=== PATIENT | male | born 1995 | race Caucasian/White ===

== ENCOUNTER 2020-08-01 23:32 | Inpatient (IN) | payer BC ==
[~2020-08-01] VITALS: Ht 185.4 cm; Wt 122.5 kg
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
[2020-08-02] MEDS ORDERED: VANCOMYCIN 1 GM in IV D5W 250 ML IV ONE
[2020-08-02] MEDS ORDERED: IV NS 0.9% 1,000 ML BAG IV ONE
[2020-08-02] MEDS ORDERED: PIPERACILLIN /TAZOBACTAM 3.375 G in IV D5W 50 ML IV ONE
[2020-08-02] MEDS ORDERED: PIPERACILLIN /TAZOBACTAM 3.375 G VIAL IV ONE (00:18)
[2020-08-02] MEDS ORDERED: VANCOMYCIN 1 GM VIAL ONE (00:18)
[2020-08-02 00:30] LABS: BASOPHILS # (AUTO) 0.1 /CMM (0.0-0.2); BASOPHILS % (AUTO) 0.6 % (0.0-2.0); HEMATOCRIT 36 % (39-51); HEMOGLOBIN 12.2 g/dL (13.5-17.5); LYMPHOCYTES # (AUTO) 2.2 /CMM (0.8-4.8); LYMPHOCYTES % (AUTO) 20.7 % (20.0-44.0); MEAN CORPUSCULAR HGB CONC 34 g/dl (31.0-36.0); MEAN CORPUSCULAR VOLUME 83 fL (80-96); MONOCYTES # (AUTO) 0.9 /CMM (0.1-1.30); MONOCYTES % (AUTO) 7.9 % (2.0-12.0); NEUTROPHILS # (AUTO) 7.7 /CMM (1.8-8.9); NEUTROPHILS % (AUTO) 70.8 % (43.0-81.0); PLATELET COUNT (AUTO) 334 /CMM (150-450); RED BLOOD CELL COUNT(AUTO) 4.39 MIL/uL (4.5-6.0); WHITE BLOOD COUNT (AUTO) 10.8 K/uL (4.3-11.0)
[2020-08-02 01:07] LABS: CALCIUM, SERUM 9.1 mg/dL (8.5-10.1); CARBON DIOXIDE 29 mmol/L (21-32); CHLORIDE 104 mmol/L (98-107); CREATININE 0.9 mg/dL (0.6-1.3); GLUCOSE 106 mg/dL (74-106); POTASSIUM 3.7 mmol/L (3.5-5.1); SODIUM SERUM 141 mmol/L (136-145); UREA NITROGEN, BLOOD 6 mg/dL (7-18)
[2020-08-02 01:19] LABS: ALANINE AMINOTRANSFERASE 51 U/L (12-78); ALBUMIN 2.9 g/dL (3.4-5.0); ALKALINE PHOSPHATASE 99 U/L (46-116); ASPARTATE AMINOTRANSFERASE 44 U/L (15-37); BILIRUBIN,DIRECT 0.1 mg/dL (0.0-0.2); BILIRUBIN,TOTAL 0.4 mg/dL (0.2-1.0); TOTAL PROTEIN, SERUM 7.6 g/dL (6.4-8.2)
[2020-08-02] MEDS ORDERED: HYDROCODONE/APAP 5/325MG TABLET ONE (01:35)
--- NOTE | 2020-08-02 01:50 | NUR ---
URINE COLLECTED, SENT TO LAB.
[2020-08-02] MEDS ORDERED: HYDROCODONE/APAP 5/325MG TABLET PO ONE (02:00)
--- NOTE | 2020-08-02 02:20 | NUR ---
CHANEL HWANG DNP PAGED PER ER ORDER.
[2020-08-02 02:31] LABS: BILIRUBIN,URINE NEGATIVE (NEGATIVE); COLOR,URINE YELLOW (YELLOW); LEUKOCYTE ESTERASE ,URINE NEGATIVE (NEGATIVE); NITRITE, URINE NEGATIVE (NEGATIVE); PROTEIN,URINE NEGATIVE (NEGATIVE); UGLUCOSE NEGATIVE (NEGATIVE)
--- NOTE | 2020-08-02 02:40 | NUR ---
ER TALKING TO CHANEL HWANG DNP REGARDING PT ADMISSION.
[2020-08-02 02:41] LABS: BACTERIA,URINE None seen /HPF (None Seen); RBC,URINE 0-2 /HPF (0-2); SQUAMOUS EPITHELIAL CELL,UR Few /HPF (None Seen); WBC,URINE 0-2 /HPF (0-3)
--- NOTE | 2020-08-02 02:41 | NUR ---
TELE [id number]
[2020-08-02 02:42] LABS: MUCUS,URINE Moderate /LPF (None Seen)
--- NOTE | 2020-08-02 02:48 | NUR ---
REPORT GIVEN TO BARRY GARRETT FOR ARY
--- NOTE | 2020-08-02 03:10 | NUR ---
PT TRANSFERED PER ACLS PROTOCOL
[2020-08-02 03:15] VITALS: BP 138/93
[2020-08-02] MEDS ORDERED: ACETAMINOPHEN 325 MG TABLET PO PRN (03:30)
[2020-08-02] MEDS ORDERED: ZOLPIDEM TARTRATE 5 MG TABLET PO PRN (03:30)
[2020-08-02] MEDS ORDERED: ONDANSETRON HCL/PF 4 MG/2 ML VIAL IVP PRN (03:30)
[2020-08-02] MEDS: IV NS 0.9% 1,000 ML IV PRN (03:39)
--- NOTE | 2020-08-02 03:45 | NUR ---
MS/RN ADMITTING NOTE RECEIVED REPORT FROM LESLIE GARRETT IN ER. PATIENT ARRIVED TO UNIT VIA GURNEY AND 2 STAFF MEMBERS. PATIENT IS ALERT AND ORIENTED X 4. ABLE TO MAKE NEEDS KNOWN. COMPLAINTS OF PAIN TO RLE 12/06 - WILL ADMINISTER PAIN MEDICATION. RESPIRATIONS EVEN AND UNLABORED. IV ACCESS TO RIGHT HAND INTACT AND PATENT. STARTED ON IV NS @ 75ML/HR. CONTINUES ON IV ABX. RLE WITH 3+ EDEMA, REDNESS, WARMTH. NO OTHER SKIN ISSUES NOTED ON ADMISSION. VS: BP 138/93 HR 104 RR 18 T 98.2 O2 SAT 96% RA. PATIENT ORIENTED TO ROOM, CALL LIGHT AND UNIT. CALL LIGHT WITHIN REACH. ASPIRATION, FALL AND SAFETY PRECAUTIONS MAINTAINED. WILL CONTINUE TO MONITOR.
[2020-08-02] MEDS: ENOXAPARIN SODIUM 40 MG/0.4 ML DISP.SYRIN SQ SCH ×2 (04:00→22:14)
[2020-08-02] MEDS: HYDROCODONE/APAP 10/325MG TABLET PO PRN ×2 (04:14→20:06)
[2020-08-02 04:34] VITALS: BP 138/93
[2020-08-02] MEDS ORDERED: CEFEPIME 2 GM in IV D5W 100 ML IV SCH (05:00)
[2020-08-02] MEDS ORDERED: CEFEPIME 1 GM VIAL ONE (05:13)
--- NOTE | 2020-08-02 06:25 | NUR ---
MS/RN CLOSING NOTE PATIENT CURRENTLY RESTING IN BED. AWAKE, ALERT AND ORIENTED X 4. ABLE TO MAKE NEEDS KNOWN. NO COMPLAINTS OF PAIN AT THIS TIME. IV ACCESS TO RIGHT HAND INTACT AND PATENT. CONTINUES ON IVF NS @ 75ML/HR. CONTINUES ON IV ABX. ALL NEEDS ATTENDED TO. CALL LIGHT WITHIN REACH. ASPIRATION, FALL AND SAFETY PRECAUTIONS MAINTAINED. WILL ENDORSE PLAN OF CARE TO ONCOMING SHIFT.
--- NOTE | 2020-08-02 07:45 | NUR ---
MS RN OPENING NOTES RECEIVED PATIENT AWAKE IN BED. ALERT AND ORIENTED X 4. ON ROOM AIR TOLERATING WELL. PATIENT COMPLAINED OF PAIN 10/10 ON R LOWER EXTREMITY. PATIENT STATED NORCO DID NOT WORK FOR PAIN. BREATHING IS EVEN AND UNLABORED. IV ACCESS RHAND#18 PATENT AND INTACT. BED MAINTAINED ON LOWEST POSITION AND LOCKED WITH SIDE RAILS UP X 2. CALL LIGHT AND BEDSIDE TABLE IS WITHIN REACH. WILL CONTINUE TO MONITOR THROUGHOUT SHIFT.
[2020-08-02] MEDS: PANTOPRAZOLE 40 MG TABLET.DR PO SCH (08:06)
[2020-08-02] MEDS: VANCOMYCIN 1.25 GM in IV D5W 250 ML IV SCH ×3 (08:07→23:00)
[2020-08-02 08:27] VITALS: BP 138/88
--- NOTE | 2020-08-02 14:49 | NUR ---
MS RN NOTES PATIENT SEEN BY PRUDENCIO PAULINO WITH ORDER FOR MORPHINE 4MG IV Q3H PRN FOR PAIN LEVEL 8-10 AND REQUEST FOR MEDICAL RECORDS FROM [facility]. ORDERS READ BACK AND CARRIED OUT. CONSENT FOR RELEASE OF INFORMATION SIGNED AND FAXED TO [facility].
[2020-08-02] MEDS ORDERED: MORPHINE SULFATE INJ 4 MG/ML DISP.SYRIN IV PRN (15:00)
[2020-08-02] MEDS: MORPHINE SULFATE INJ 4 MG/ML DISP.SYRIN IV PRN ×3 (15:11→21:34)
[2020-08-02 16:05] VITALS: BP 158/86
--- NOTE | 2020-08-02 17:15 | NUR ---
MS RN OPENING NOTE Patient A&Ox4. Screaming out at this time stating he is in pain, but per report from AM RN his IV is no longer in place. Immediately went in to reassure patient I will try to start a new IV PADDY so he will be able to get his next due IV Morphine.
--- NOTE | 2020-08-02 17:30 | NUR ---
Patient refused vital signs and screamed profanities at [facility]. States he will not have his vitals taken until after he gets his pain medicine.
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
--- NOTE | 2020-08-02 19:16 | NUR ---
MS RN CLOSING NOTE PATIENT CURRENTLY IN BED. AWAKE, ALERT AND ORIENTED X 4. ABLE TO MAKE NEEDS KNOWN. WILL CONTINUE ANTIBIOTICS AND IVF. ALL NEEDS ATTENDED TO. CALL LIGHT WITHIN REACH. FALL AND SAFETY PRECAUTIONS MAINTAINED WITH BED LOCKED AT LOWEST POSITION AND SIDE RAILS UP X 2. WILL ENDORSE PLAN OF CARE TO ONCOMING SHIFT.
--- NOTE | 2020-08-02 20:00 | NUR ---
Attempted with other RN to establish IV access x4, AM shift attempted x2. Accuscan not working at this time. Unable to establish IV access. Charge nurse informed. Will try again soon.
--- NOTE | 2020-08-02 20:06 | NUR ---
PO [place] offered patient says he doesn't want it because its "useless." Explained again it should help with some of his pain in the meantime. Patient then compliant and took PRN [place].
[2020-08-02] MEDS: CEFEPIME 2 GM in IV D5W 100 ML IV SCH (21:05)
--- NOTE | 2020-08-02 21:36 | NUR ---
MS RN NOTES Patient c/o 10/10 pain to R foot. Requested PRN Morphine. given as per order.
[2020-08-02 22:30] VITALS: BP 138/93
--- NOTE | 2020-08-02 22:30 | NUR ---
30 minutes after PRN Morphine administration patient was screaming throughout the unit that it didn't work and he was still in 10/10 pain. RN went in to room to try and reassure patient to wait a little longer. 15 minutes later patient was dozing off to sleep but still easy to rouse.
[2020-08-03] MEDS: MORPHINE SULFATE INJ 4 MG/ML DISP.SYRIN IV PRN ×6 (00:38→21:38)
--- NOTE | 2020-08-03 00:38 | NUR ---
MS RN NOTES Patient c/o 10/10 pain to R foot, PRN morphine given as ordered.
--- NOTE | 2020-08-03 01:15 | NUR ---
RN NOTES 30 minutes after morphine administration patient is calmly eating the [employer] he ordered, no non-verbal signs of pain. Patient states he is still in severe pain. Will monitor.
--- NOTE | 2020-08-03 02:00 | NUR ---
Patient had behavior episode of yelling out when he didn't get the food that he wanted. Pudding, jello, tuna sandwich, and soda wereoffered but patient was not interested in anything the facility had to offer. Pt was screaming out that not having dessert (except pudding) was "killing" him mentally and proceeded to shout out. After he had ordered food via [employer] pt calmed down.
--- NOTE | 2020-08-03 02:00 | NUR ---
RN NOTES Patient is sleeping well but easy to rouse.
[2020-08-03] MEDS: IV NS 0.9% 1,000 ML IV PRN (05:08)
--- NOTE | 2020-08-03 05:21 | NUR ---
RN NOTES At 0510 patient c/o 10/10 pain to R foot,PRN morphine given as ordered.
--- NOTE | 2020-08-03 05:59 | NUR ---
MS RN CLOSING NOTES Patient is sleeping, but easy to rouse. A&Ox4. VSS. No ase from IV ABX. Asked for pain medication frequently. Documented in nursing notes. Then was able to fall back asleep. LAC IV still patent and infusing IVF. Patient is able to make needs known. No signs of distress at this time.
[2020-08-03 07:03] LABS: BASOPHILS % (AUTO) 0.2 % (0.0-2.0); EOSINOPHILS % (AUTO) 0.1 % (0.0-6.0); HEMATOCRIT 31 % (39-51); HEMOGLOBIN 10.8 g/dL (13.5-17.5); LYMPHOCYTES % (AUTO) 31.3 % (20.0-44.0); MEAN CORPUSCULAR HGB CONC 34 g/dl (31.0-36.0); MEAN CORPUSCULAR VOLUME 83 fL (80-96); MONOCYTES # (AUTO) 0.6 /CMM (0.1-1.30); MONOCYTES % (AUTO) 9.5 % (2.0-12.0); NEUTROPHILS # (AUTO) 3.7 /CMM (1.8-8.9); NEUTROPHILS % (AUTO) 58.9 % (43.0-81.0); PLATELET COUNT (AUTO) 309 /CMM (150-450); WHITE BLOOD COUNT (AUTO) 6.3 K/uL (4.3-11.0)
[2020-08-03 07:31] LABS: ALBUMIN 2.4 g/dL (3.4-5.0); BILIRUBIN,TOTAL 0.3 mg/dL (0.2-1.0); CALCIUM, SERUM 8.3 mg/dL (8.5-10.1); CREATININE 0.7 mg/dL (0.6-1.3); MAGNESIUM 1.7 mg/dL (1.8-2.4); PHOSPHORUS 4.7 mg/dL (2.5-4.9); POTASSIUM 3.8 mmol/L (3.5-5.1); TOTAL PROTEIN, SERUM 6.2 g/dL (6.4-8.2)
[2020-08-03 08:23] VITALS: BP 132/68
[2020-08-03] MEDS: PANTOPRAZOLE 40 MG TABLET.DR PO SCH (09:07)
--- NOTE | 2020-08-03 09:15 | NUR ---
RN NOTES PATIENT SEEN IN BED RESTING, AWAKE AND VERBALLY RESPONSIVE, NOT IN ACUTE DISTRESS. BREATHING EVEN AND UNLABORED, TOLERATING ROOM AIR. ENDORSED BY PREVIOUS SHIFT RN THAT PATIENT ONLY HAS LAC #24; PATIENT DID NOT WANT MIDLINE INSERTED. NOTED W/ RLE/R FOOT REDNESS S/T CELLULITIS. SAFETY PRECAUTIONS IN PLACE. WILL CONTINUE TO MONITOR.
[2020-08-03] MEDS: VANCOMYCIN 1.25 GM in IV D5W 250 ML IV SCH (09:43)
[2020-08-03] MEDS: CEFEPIME 2 GM in IV D5W 100 ML IV SCH (10:58)
--- NOTE | 2020-08-03 11:30 | NUR ---
RN NOTES PATIENT PREVIOUSLY COMPLAINT OF PAIN ON RLE 10, NOT IN ACUTE DISTRESS. PRN MORPHINE GIVEN TO PATIENT, NO COMPLAINT OF PAIN AT THIS TIME. ADVISED PATIENT IF A PERIPHERAL LINE CAN BE INSERTED IN CASE THE CURRENT ONE BECOMES INFILTRATED, BUT PATIENT REFUSED TO BE CANNULATED AT THIS TIME, STATING THAT THE CURRENT ONE IS STILL OK TO USE. WILL CONTINUE TO MONITOR.
[2020-08-03] MEDS: Magnesium 1GM/D5W 100ML PREMIX 100 ML IV SCH ×2 (11:49→13:00)
--- NOTE | 2020-08-03 12:07 | NUR ---
RN NOTES PATIENT YELLING AND SHOUTING IN THE ROOM, STATING "FUCK THIS PLACE, I WANT TO FUCKING LEAVE"; PATIENT VERBALIZED THAT HE WANTS TO LEAVE THIS PLACE BECAUSE "THE FOOD SUCKS" AND "NO ONE IS DOING ANYTHING IN THIS HOSPITAL". CHARGE NURSE MADE AWARE, DR. FLANNERY CURRENTLY IN THE UNIT TO ASSESS PATIENT. SECURITY ALSO AT BEDSIDE.
--- NOTE | 2020-08-03 12:40 | NUR ---
RN NOTES DR. FLANNERY SPOKE W/ PATIENT AND INFORMED ABOUT PLAN OF CARE; MD AGREED TO INCREASE DOSE OF PAIN MEDICATION AT THIS TIME. PATIENT IS STATING THAT HE WANTS THE SAME NURSE FOR TONIGHT. EXPLAINED THAT IF THE SAME NURSE IS HERE THEN HE MIGHT GET THAT NURSE, OTHERWISE, IT MIGHT BE DIFFERENT. VERBALIZED UNDERSTANDING AT THIS TIME. URINAL PROVIDED TO PATIENT. WILL CONTINUE TO MONITOR.
--- NOTE | 2020-08-03 13:40 | NUR ---
RN NOTES PATIENT REQUESTED FOR SWEETS ALTERNATIVE FOR LUNCH; DID NOT EAT LUNCH BECAUSE HE DIDN'T LIKE THE FOOD. ALTERNATIVES PROVIDED TO PATIENT BUT STILL REFUSED. ASKED FOR COOKIES, PUDDING, AND MILK; PROVIDED TO PATIENT. DIETARY STAFF PROVIDED POUND CAKE AND COOKIES FOR PATIENT.
--- NOTE | 2020-08-03 19:00 | NUR ---
RN NOTES PATIENT DID NOT WANT TO EAT DINNER, STATING "THE FOOD IS DISGUSTING"; OFFERED ALTERNATIVE TO PATIENT OF TURKEY SANDWICH. PRN PAIN MEDICATION ADMINISTERED INDICATED. INFORMED ABOUT CHANGE OF ATB MEDICATION FOLLOWING ID CONSULT. PATIENT RESTING IN BED, AWAKE AND VERBALLY RESPONSIVE. BREATHING EVEN AND UNLABORED. SAFETY MEASURES MAINTAINED. WILL ENDORSE TO MANAGER FINANCIAL RN FOR ARY.
--- NOTE | 2020-08-03 20:00 | NUR ---
RN OPENING NOTES: RECEIVED PATIENT IS AWAKE IN BED, NO COMPLAIN OF PAIN AND DISCOMFORT AT THIS TIME , BED IN LOW POSITION, CALL LIGHTS WITHIN REACH, A/O X 4 ABLE TO MAKE NEEDS KNOWN, AMBULATORY/ PREFER TO USE THE URINAL , WITH IV LINE AT LAC #24 WITH NSS @75ML/HR INFUSING WELL, ALL NEEDS MET, PATIENT WAS KEPT CLEAN AND DRY, WILL CONTINUE TO MONITOR.
[2020-08-03] MEDS: ENOXAPARIN SODIUM 40 MG/0.4 ML DISP.SYRIN SQ SCH (21:17)
[2020-08-03] MEDS: CEFAZOLIN 1 GM in IV D5W 50 ML IV SCH (21:18)
--- NOTE | 2020-08-03 21:38 | NUR ---
RN NOTES PATIENT COMPLAIN OF LEG PAIN PS -9 PRN MORPHINE 6MG Q3H GIVEN.
[2020-08-04] MEDS: MORPHINE SULFATE INJ 4 MG/ML DISP.SYRIN IV PRN (05:28)
[2020-08-04] MEDS: CEFAZOLIN 1 GM in IV D5W 50 ML IV SCH ×2 (06:00→12:00)
--- NOTE | 2020-08-04 06:18 | NUR ---
RN NOTES: PATIENT REFUSED BLOOD DRAWN DURING NIGHT AND AM FOR AM LABS
[2020-08-04] MEDS: PANTOPRAZOLE 40 MG TABLET.DR PO SCH (07:30)
--- NOTE | 2020-08-04 07:51 | NUR ---
RN CLOSING NOTES: PATIENT WAS PLACED IN BED COMFORTABLY, BED IN LOW POSITION, CALL LIGHTS WITHN REACH, ON IV HYDRATION OF D5NSS @75ML INFUSING WELL, DUE MEDS GIVEN , ALL NEEDS ATTENDED ENDORSE TO INCOMING SHIFT.
--- NOTE | 2020-08-04 08:00 | NUR ---
RN MS NOTES PT IN BED, ASLEEP, NO SIGN OF PAIN OR DISTRESS, IV FLUIDS INFUSING WELL, CALL LIGHT WITHIN REACH.
--- NOTE | 2020-08-04 08:30 | NUR ---
RN MS NOTES PT SCREAMING AND CURSING, THROWING THINGS ON THE FLOOR, WHEN ASKED WHAT HE NEEDS, KEPT ON THROWING AND SCREAMING, CALMED AFTER A WHILE, MD AWARE OF PT'S BEHAVIOR, NEEDS ATTENDED.
[2020-08-04] MEDS ORDERED: CLIN300C12 PO (10:07)
[2020-08-04] MEDS ORDERED: OXYC5CAP18 PO (10:07)
[2020-08-04] MEDS ORDERED: ONDA4TAB5 PO (10:07)
--- NOTE | 2020-08-04 10:20 | NUR ---
RN MS NOTES PT IN BED, AWAKE, ALERT AND ORIENTED, NO COMPLAINT AT THIS TIME, SEEN AND EXAMINED BY DR. CALLES, PLAN OF CARE DISCUSSED WITH PT, VERBALIZED UNDERSTANDING, VISITED BY DAD.
[2020-08-04] MEDS: IV NS 0.9% 1,000 ML IV PRN (11:18)
--- NOTE | 2020-08-04 16:43 | NUR ---
RN MS NOTES PT IN BED, AWAKE, ALERT AND ORIENTED, WITH EPISODES OF YELLING AND THROWING THINGS ON THE FLOOR, DAD AT BEDSIDE, PT WANTS TO LEAVE, DR. CALLES GAVE A DISCHARGE ORDER, NEW PRESCRIPTION SENT ELECTRONICALLY TO [facility] BY DR. CALLES, DISCHARGE AND MEDICATION INSTRUCTIONS PROVIDED TO PT, VERBALIZED UNDERSTANDING, PT REFUSED VITAL SIGN CHECKS AND LAB WORKS TODAY, MD AWARE, BELONGINGS ACCOUNTED FOR, WITH REDNESS AND SWELLING AT RIGHT FOOT, PT AMBULATORY, PT STRONGLY REFUSED TO HAVE HIS IV REMOVED DESPITE EXPLANATIONS, PLODDING MACHINE OPERATOR CALLED, PT'S IV LINE REMOVED, ASSISTED PT TO HOSPITAL LOBBY VIA WHEELCHAIR BY WATCH REPAIR PERSON, PT IN STABLE CONDITION, HIS DAD IS TAKING HIM HOME.
== END 2020-08-04 16:45 | disposition home or self-care (01) | DRG 603 ==
LOC: ER 23:32 → TELE 08-02 02:50 → MED 08-02 04:06
PROVIDERS: ATTEND Nurse Practitioner Acute Care
DX: L03.115 Cellulitis of right lower limb (principal); F11.20 Opioid dependence, uncomplicated; E66.9 Obesity, unspecified; Z20.822 Contact with and (suspected) exposure to COVID-19; F17.200 Nicotine dependence, unspecified, uncomplicated; Z68.35 Body mass index [BMI] 35.0-35.9, adult; F12.90 Cannabis use, unspecified, uncomplicated
CPT/HCPCS: 36415; 71045-TC; 73630-TC; 80048-TC; 80053-TC; 80061-TC; 80076-TC; 80202-TC; 81001; 82550-TC; 83605-TC; 83735-TC; 84100-TC; 84484-TC; 85025-TC; 85730-TC; 87040-TC; 87081-TC; 87086-TC; G0378; J0690; J0692; J1650; J2270; J2543; J3370; J3475; J7030; J7060